=== PATIENT | male | born 1945 | race Caucasian/White ===

== ENCOUNTER 2019-09-12 10:13 | Inpatient (IN) | payer MEDICARE, BC ==
[~2019-09-12] VITALS: Ht 177.8 cm; Wt 101.0 kg
[2019-09-12 10:34] LABS: EOSINOPHILS # (AUTO) 0.3 X10'3 (0-0.9); HEMOGLOBIN 14.2 g/dl (14.0-17.9); LYMPHOCYTES # (AUTO) 25.2 X10'3 (1.1-4.8); MEAN PLATELET VOLUME 8.8 FL (7.4-10.4); MONOCYTES # (AUTO) 0.7 X10'3 (0-0.9); RED CELL DISTRIBUTION WIDTH 14.4 % (11.5-14.5)
[2019-09-12 10:36] LABS: BASOPHILS # (AUTO) 0.3 X10'3 (0-0.2); BASOPHILS % (AUTO) 0.8 % (0-1); HEMATOCRIT 42.4 % (42.0-52.0); LYMPHOCYTES % (AUTO) 76.3 % (21-51); MEAN CORPUSCULAR HEMOGLOBIN 31.6 PG (27.0-31.0); MEAN CORPUSCULAR HGB CONC 33.4 g/dL (33.0-36.5); MEAN CORPUSCULAR VOLUME 94.8 FL (78-98); MONOCYTES % (AUTO) 2.2 % (2-12); NEUTROPHILS # (AUTO) 6.5 X10'3 (1.8-7.7); NEUTROPHILS % (AUTO) 19.7 % (42-75); PLATELET COUNT 130 X10'3 (140-440); RED BLOOD COUNT 4.48 X10'6 (4.70-6.10)
[2019-09-12 10:38] LABS: WHITE BLOOD COUNT 33.1 X10'3 (4.5-11.0)
[2019-09-12 10:54] LABS: PARTIAL THROMBOPLASTIN TIME 26 SECONDS (22-32)
[2019-09-12 10:57] LABS: ALANINE AMINOTRANSFERASE 29 U/L (12-78); ALBUMIN/GLOBULIN RATIO 1.1 (1.1-1.5); ALKALINE PHOSPHATASE 75 IU/L (46-116); ANION GAP 8 (8-16); ASPARTATE AMINO TRANSFERASE 23 U/L (10-37); BILIRUBIN,TOTAL 1.3 MG/DL (0.1-1.0); BLOOD UREA NITROGEN 26 MG/DL (7-18); BUN/CREATININE RATIO 24.5 (5.4-32.0); CHLORIDE 107 MMOL/L (99-107); CREATININE 1.06 MG/DL (0.60-1.10); GLUCOSE 158 MG/DL (70-104); SODIUM 142 MMOL/L (135-145); TOTAL CARBON DIOXIDE 26.6 MMOL/L (24-32); TOTAL PROTEIN 7.5 G/DL (6.4-8.2); eGFR 68 ML/MIN
[2019-09-12 11:01] LABS: ANISOCYTOSIS 1+; PLATELET ESTIMATE DECREASED; TOTAL CELLS COUNTED 100
[2019-09-12] MEDS ORDERED: aspirin 81mg tab.chew PO ONE (11:30)
[2019-09-12] MEDS ORDERED: nitroGLYCERIN 0.4mg/hour patch TD ONE (11:30)
[2019-09-12] MEDS ORDERED: BISO10TA PO (11:44)
[2019-09-12] MEDS ORDERED: ALLO100T PO (11:44)
[2019-09-12] MEDS ORDERED: AMLO2.5T2 PO (11:44)
[2019-09-12] MEDS ORDERED: ROSU10TA2 PO (11:44)
[2019-09-12] MEDS ORDERED: POTA10TA10 PO (11:44)
[2019-09-12] MEDS ORDERED: IRBE150T51 PO (11:44)
[2019-09-12] MEDS ORDERED: FURO80TA87 PO (11:44)
[2019-09-12] MEDS ORDERED: DOXA4TAB3 PO (11:44)
[2019-09-12] MEDS ORDERED: magnesium Cl slow-release 64mg tablet PO PRN (12:10)
[2019-09-12] MEDS ORDERED: LORazepam 1 MG tablet PO PRN (12:10)
[2019-09-12] MEDS ORDERED: magnesium 4gm in 100ml NS 100 ML IV PRN (12:10)
[2019-09-12] MEDS ORDERED: acetaminophen 325mg tablet PO PRN ×2 (12:10)
[2019-09-12] MEDS ORDERED: potassium Cl 20 mEq SR tablet PO PRN ×2 (12:10)
[2019-09-12] MEDS ORDERED: HYDROcodone/acetaminophen 5mg/325mg tablet PO PRN (12:10)
[2019-09-12] MEDS ORDERED: magnesium 2GM in 50ml NS 50 ML IV PRN (12:10)
[2019-09-12] MEDS ORDERED: morphine 2 MG/ML inj. syringe IV PRN (12:10)
[2019-09-12] MEDS ORDERED: LORazepam 2 mg/ml vial IV PRN (12:10)
[2019-09-12] MEDS ORDERED: potassium CL 10mEq/100ml bag 100 ML IV PRN ×2 (12:10)
[2019-09-12] MEDS ORDERED: ondansetron/PF 4mg/2ml inj IV PRN (12:10)
[2019-09-12] MEDS ORDERED: FLUT15.815 NAS (15:49)
--- NOTE | 2019-09-12 17:59 | NUR ---
History of Aortic Valve Replacement 11 years ago at the same time a Aortic Aneurism repair.
[2019-09-12 18:01] VITALS: BP 134/62
--- NOTE | 2019-09-12 18:30 | NUR ---
Patient in room PCU 3011. I have received report from Juliet LYNCH and had the opportunity to ask questions and assume patient care. Patient is up in his chair, he is fully ambulatory and in good spirits. He has no immediate needs. Will continue to monitor
[2019-09-12] MEDS: furosemide 40mg/4ml inj IV SCH (19:26)
[2019-09-12] MEDS: heparin, porcine 5000 units/ml vial SQ SCH (19:27)
[2019-09-12] MEDS: docusate sod 100mg capsule PO SCH (19:27)
[2019-09-12] MEDS ORDERED: temazepam 15mg capsule PO PRN (21:00)
[2019-09-12] MEDS ORDERED: atorvastatin 20mg tablet PO SCH (21:00)
[2019-09-12] MEDS ORDERED: doxazosin mesylate 2mg tablet PO SCH (21:00)
[2019-09-12] MEDS ORDERED: allopurinol 300 MG tablet PO SCH (21:00)
[2019-09-12 22:00] VITALS: BP 121/60
[2019-09-13 02:00] VITALS: BP 122/57
[2019-09-13 05:41] LABS: BASOPHILS # (AUTO) 0.1 X10'3 (0-0.2); BASOPHILS % (AUTO) 0.4 % (0-1); EOSINOPHILS # (AUTO) 0.4 X10'3 (0-0.9); HEMOGLOBIN 13.2 g/dl (14.0-17.9)
[2019-09-13 05:49] LABS: EOSINOPHILS % (AUTO) 1.2 % (0-6); HEMATOCRIT 39.2 % (42.0-52.0); LYMPHOCYTES # (AUTO) 27.6 X10'3 (1.1-4.8); LYMPHOCYTES % (AUTO) 78.2 % (21-51); MEAN CORPUSCULAR HGB CONC 33.6 g/dL (33.0-36.5); MEAN CORPUSCULAR VOLUME 95.3 FL (78-98); MEAN PLATELET VOLUME 9.1 FL (7.4-10.4); MONOCYTES # (AUTO) 0.9 X10'3 (0-0.9); MONOCYTES % (AUTO) 2.6 % (2-12); NEUTROPHILS # (AUTO) 6.2 X10'3 (1.8-7.7); NEUTROPHILS % (AUTO) 17.6 % (42-75); PLATELET COUNT 126 X10'3 (140-440); RED BLOOD COUNT 4.11 X10'6 (4.70-6.10); RED CELL DISTRIBUTION WIDTH 14.8 % (11.5-14.5)
[2019-09-13 05:55] LABS: WHITE BLOOD COUNT 35.2 X10'3 (4.5-11.0)
[2019-09-13 06:00] VITALS: BP 127/57
[2019-09-13 06:03] LABS: ALANINE AMINOTRANSFERASE 26 U/L (12-78); ALBUMIN 3.7 G/DL (3.4-5.0); ALBUMIN/GLOBULIN RATIO 1.2 (1.1-1.5); ALKALINE PHOSPHATASE 68 IU/L (46-116); ANION GAP 8 (8-16); ASPARTATE AMINO TRANSFERASE 21 U/L (10-37); BILIRUBIN,TOTAL 1.2 MG/DL (0.1-1.0); BLOOD UREA NITROGEN 26 MG/DL (7-18); BUN/CREATININE RATIO 23.9 (5.4-32.0); CALCIUM 8.7 MG/DL (8.5-10.1); CHLORIDE 108 MMOL/L (99-107); CHOL/HDL RATIO 3.5 (0.00-4.99); CHOLESTEROL 124 MG/DL (0-200); CREATININE 1.09 MG/DL (0.60-1.10); GLUCOSE 101 MG/DL (70-104); HDL CHOLESTEROL 35 MG/DL (35-60); LDL CHOLESTEROL 71 MG/DL (50-100); MAGNESIUM 1.9 MG/DL (1.5-2.4); POTASSIUM 3.9 MMOL/L (3.5-5.1); SODIUM 145 MMOL/L (135-145); TOTAL PROTEIN 6.7 G/DL (6.4-8.2); TRIGLYCERIDES 119 MG/DL (20-135); eGFR 66 ML/MIN
--- NOTE | 2019-09-13 06:21 | NUR ---
Patient in room PCU 3011. I have received report from Zara LYNCH and had the opportunity to ask questions and assume patient care.
--- NOTE | 2019-09-13 06:39 | NUR ---
Problems reprioritized. Patient report given, questions answered & plan of care reviewed with Julieta LYNCH.
[2019-09-13 07:06] LABS: PLATELET ESTIMATE DECREASED; TOTAL CELLS COUNTED 100
[2019-09-13 07:07] LABS: ANISOCYTOSIS 1+
[2019-09-13 07:27] VITALS: BP_SYST 127
[2019-09-13] MEDS: furosemide 40mg/4ml inj IV SCH (07:27)
[2019-09-13] MEDS: heparin, porcine 5000 units/ml vial SQ SCH (07:27)
[2019-09-13] MEDS ORDERED: losartan 50mg tablet PO SCH (08:00)
[2019-09-13] MEDS ORDERED: atenolol 50mg tablet PO SCH (08:00)
[2019-09-13] MEDS ORDERED: K and/or MAG REPLACEMENT MC SCH (08:00)
[2019-09-13] MEDS: docusate sod 100mg capsule PO SCH (08:20)
[2019-09-13] MEDS ORDERED: FURO-150 PO (10:29)
--- NOTE | 2019-09-13 11:32 | NUR ---
Per MD order, Dr. Gan, patient is stable for discharge. Discharge packet printed and reviewed with patient and spouse. Unable to make CHF follow up appointment for patient since office is closed on Saturday. Instructed patient to call Dr. Tolbert's office tomorrow morning to make follow up appointment. Patient and spouse understand instructions. All questions answered. Tele monitor removed, IV removed with cannula intact. All belongings sent with patient. Patient escorted to private vehicle via wheelchair, home with spouse.
--- NOTE | 2019-09-13 12:18 | NUR ---
New hire documentation: I have reviewed and agree with all interventions, assessments performed and documented by Tania LYNCH .
[2019-09-14] MEDS ORDERED: FURO20TA4 PO (17:08)
[2019-09-14] MEDS ORDERED: DOXY100C43 PO (17:16)
[2019-09-14] MEDS ORDERED: PRED20TA PO (17:16)
[2019-09-14] MEDS ORDERED: ALBU18HF2 INH (17:16)
== END 2019-09-13 11:32 | disposition home or self-care (01) | DRG 280 ==
LOC: ER 10:14 → ED HOLD 12:26 → EDBEDREQ 12:31 → PCU 3S 13:15
PROVIDERS: ADMIT Internal Medicine; ATTEND Family Medicine
DX: I21.A1 Myocardial infarction type 2 (principal); I50.43 Acute on chronic combined systolic (congestive) and diastolic (congestive) heart failure; C91.10 Chronic lymphocytic leukemia of B-cell type not having achieved remission; I24.9 Acute ischemic heart disease, unspecified; R09.02 Hypoxemia; D69.59 Other secondary thrombocytopenia; H54.62 Unqualified visual loss, left eye, normal vision right eye; I25.10 Atherosclerotic heart disease of native coronary artery without angina pectoris; Z79.899 Other long term (current) drug therapy; Z86.79 Personal history of other diseases of the circulatory system; Z95.2 Presence of prosthetic heart valve
CPT/HCPCS: 36415; 71045; 80053; 80061; 83605; 83735; 83880; 84484; 85025; 85610; 85730; 87040; 87081; 93005; 93306; 99285; G0378; J1644; J1940

== ENCOUNTER 2019-09-14 15:05 | Emergency (ER) | payer BC, MEDICARE ==
[~2019-09-14] VITALS: Ht 177.8 cm; Wt 97.0 kg
[~2019-09-14 15:05] MED LIST: ALLO100T PO; AMLO2.5T2 PO; BISO10TA PO; DOXA4TAB3 PO; FLUT15.815 NAS; FURO-150 PO; IRBE150T51 PO; POTA10TA10 PO; ROSU10TA2 PO
[2019-09-14 16:06] LABS: HEMOGLOBIN 13.4 g/dl (14.0-17.9); MEAN CORPUSCULAR HEMOGLOBIN 31.6 PG (27.0-31.0); MONOCYTES # (AUTO) 0.9 X10'3 (0-0.9); RED BLOOD COUNT 4.24 X10'6 (4.70-6.10)
[2019-09-14 16:07] LABS: BASOPHILS # (AUTO) 0.2 X10'3 (0-0.2); BASOPHILS % (AUTO) 0.5 % (0-1); EOSINOPHILS # (AUTO) 0.4 X10'3 (0-0.9); EOSINOPHILS % (AUTO) 1.1 % (0-6); HEMATOCRIT 40.2 % (42.0-52.0); LYMPHOCYTES % (AUTO) 75.5 % (21-51); MEAN CORPUSCULAR HGB CONC 33.4 g/dL (33.0-36.5); MEAN CORPUSCULAR VOLUME 94.7 FL (78-98); MONOCYTES % (AUTO) 2.8 % (2-12); NEUTROPHILS # (AUTO) 6.7 X10'3 (1.8-7.7); NEUTROPHILS % (AUTO) 20.1 % (42-75); PLATELET COUNT 137 X10'3 (140-440); RED CELL DISTRIBUTION WIDTH 14.2 % (11.5-14.5)
[2019-09-14 16:11] LABS: WHITE BLOOD COUNT 33.2 X10'3 (4.5-11.0)
[2019-09-14 16:19] LABS: PARTIAL THROMBOPLASTIN TIME 27 SECONDS (22-32)
[2019-09-14 16:21] LABS: ALANINE AMINOTRANSFERASE 23 U/L (12-78); ALBUMIN 3.9 G/DL (3.4-5.0); ALBUMIN/GLOBULIN RATIO 1.2 (1.1-1.5); ALKALINE PHOSPHATASE 75 IU/L (46-116); ANION GAP 7 (8-16); ASPARTATE AMINO TRANSFERASE 20 U/L (10-37); BILIRUBIN,TOTAL 1.6 MG/DL (0.1-1.0); BLOOD UREA NITROGEN 27 MG/DL (7-18); CALCIUM 9.3 MG/DL (8.5-10.1); CHLORIDE 106 MMOL/L (99-107); CREATININE 1.08 MG/DL (0.60-1.10); GLUCOSE 97 MG/DL (70-104); SODIUM 141 MMOL/L (135-145); TOTAL CARBON DIOXIDE 28.4 MMOL/L (24-32); TOTAL PROTEIN 7.2 G/DL (6.4-8.2); eGFR 67 ML/MIN
[2019-09-14 16:46] LABS: TOTAL CELLS COUNTED 200
[2019-09-14 16:47] LABS: PLATELET ESTIMATE DECREASED
[2019-09-14 16:49] LABS: SMUDGE CELLS 1+
[2019-09-14] MEDS ORDERED: FURO20TA4 PO (17:08)
[2019-09-14] MEDS ORDERED: PRED20TA PO (17:16)
[2019-09-14] MEDS ORDERED: DOXY100C43 PO (17:16)
[2019-09-14] MEDS ORDERED: ALBU18HF2 INH (17:16)
[2019-09-14 18:14] VITALS: BP 132/55
== END 2019-09-14 18:22 | disposition home or self-care (01) ==
LOC: ER 15:05
DX: C91.10 Chronic lymphocytic leukemia of B-cell type not having achieved remission (principal); I50.9 Heart failure, unspecified; Z98.890 Other specified postprocedural states; Z72.89 Other problems related to lifestyle; Z79.899 Other long term (current) drug therapy
CPT/HCPCS: 36415; 71045; 80053; 83880; 84484; 85025; 85610; 85730; 93005; 99284

== ENCOUNTER 2019-09-20 05:10 | Inpatient (IN) | payer MEDICARE, BC ==
[2019-09-19] MEDS: midazolam 100mg in NS 100ml 100 ML IV SCH (06:38)
[2019-09-20] VITALS (13 sets, daily range): BP systolic 79–123; BP diastolic 37–48
[~2019-09-20] VITALS: Ht 177.8 cm; Wt 111.3 kg
[~2019-09-20 05:10] MED LIST changes: +0.9 % SODIUM CHLORIDE 10 ML VIAL ONE; +ALBU18HF2 INH; +DOXY100C43 PO; -FURO-150 PO; +FURO20TA4 PO; +PRED20TA PO; +etomidate 2mg/ml inj. ONE; +sodium bicarbonate (8.4%) inj. 1 MEQ/ML ML ONE
[2019-09-20 06:00] LABS: EOSINOPHILS % (AUTO) 0.1 % (0-6); HEMOGLOBIN 13.1 g/dl (14.0-17.9); MEAN CORPUSCULAR HGB CONC 32.4 g/dL (33.0-36.5); PLATELET COUNT 174 X10'3 (140-440)
[2019-09-20 06:02] LABS: BASOPHILS # (AUTO) 0.2 X10'3 (0-0.2); BASOPHILS % (AUTO) 0.3 % (0-1); HEMATOCRIT 40.6 % (42.0-52.0); LYMPHOCYTES # (AUTO) 42.8 X10'3 (1.1-4.8); MEAN CORPUSCULAR HEMOGLOBIN 31.4 PG (27.0-31.0); MEAN PLATELET VOLUME 9.8 FL (7.4-10.4); MONOCYTES # (AUTO) 1.1 X10'3 (0-0.9); MONOCYTES % (AUTO) 1.9 % (2-12); NEUTROPHILS # (AUTO) 10.8 X10'3 (1.8-7.7); NEUTROPHILS % (AUTO) 19.7 % (42-75); RED BLOOD COUNT 4.18 X10'6 (4.70-6.10); RED CELL DISTRIBUTION WIDTH 14.5 % (11.5-14.5)
[2019-09-20 06:09] LABS: WHITE BLOOD COUNT 54.8 X10'3 (4.5-11.0)
[2019-09-20] MEDS ORDERED: nitroGLYCERIN-Tridil 50MG/D5W 250 ML IV SCH (06:10)
[2019-09-20] MEDS ORDERED: furosemide 10 MG/1 ML 10ml inj IV ONE (06:10)
[2019-09-20 06:18] LABS: PARTIAL THROMBOPLASTIN TIME 22 SECONDS (22-32)
--- NOTE | 2019-09-20 06:20 | NUR ---
Patient oxygen saturation decreased to 80% on a nonrebreather, Heart rate 126 beats/min Vtach, 132/63 mmHg, 37 breaths/min. Paged respiratory for intubation and temperarily held nitro drip due to patients declining status.
[2019-09-20 06:25] LABS: ALANINE AMINOTRANSFERASE 61 U/L (12-78); ALBUMIN 3.7 G/DL (3.4-5.0); ALKALINE PHOSPHATASE 68 IU/L (46-116); ANION GAP 12 (8-16); ASPARTATE AMINO TRANSFERASE 33 U/L (10-37); BILIRUBIN,TOTAL 1.4 MG/DL (0.1-1.0); BLOOD UREA NITROGEN 49 MG/DL (7-18); BUN/CREATININE RATIO 34.3 (5.4-32.0); CHLORIDE 108 MMOL/L (99-107); CREATININE 1.43 MG/DL (0.60-1.10); GLUCOSE 143 MG/DL (70-104); POTASSIUM 3.5 MMOL/L (3.5-5.1); SODIUM 145 MMOL/L (135-145); TOTAL CARBON DIOXIDE 24.6 MMOL/L (24-32); TOTAL PROTEIN 7.4 G/DL (6.4-8.2); eGFR 48 ML/MIN
--- NOTE | 2019-09-20 06:30 | NUR ---
Verbal order obtained for non behavioral restraints.
--- NOTE | 2019-09-20 06:30 | NUR ---
Successful intubation at 0630, chest xray paged for confirmation of placement. RSI intervention completed in interventions.
--- NOTE | 2019-09-20 06:34 | NUR ---
0620 called for crash cart + resp for intubation. patient respiratory decompensating. 0629 janette 70mg, atomidate, bag mask 15 Liters 0630 intubated, 24 teeth- 126hr, 90% bilateral breath sounds 22 132/81, 24 @teeth, color change 0632 112, 82%, 29 rr, 127/70 20g 0635 110hr, 88% o2 15liters bag valve 140/76
[2019-09-20] MEDS ORDERED: heparin 25,000 UNIT/250ml bag 250 ML IV SCH (06:36)
[2019-09-20] MEDS ORDERED: heparin 10,000 units/1 ML INJ IV ONE ×2 (06:40)
[2019-09-20] MEDS ORDERED: heparin 10,000 units/1 ML INJ IV PRN ×2 (06:40→16:40)
--- NOTE | 2019-09-20 06:40 | NUR ---
Chest x ray confirmed ET tube placement. Nitroglycerin drip continued at 5 mcg/min IV.
--- NOTE | 2019-09-20 06:45 | NUR ---
RT obtained ABG.
[2019-09-20] MEDS: fentaNYL/PF 50MCG/1 ML 2ML syringe IV PRN ×2 (06:49→07:13)
[2019-09-20] MEDS ORDERED: iohexol 350MG/ML 100ml bottle IV ONE (06:50)
[2019-09-20 06:51] LABS: ABG BASE EXCESS -5.6 mmol/L (-2.0-3.0); ABG HCO3 23.7 mmol/L (22.0-26.0); ABG OXYGEN SATURATION 83.2 % (95-98); ABG PCO2 (T) 63.2 mmHg (35.0-45.0); ABG PH (T) 7.191 (7.350-7.450); ABG PO2 (T) 60.1 mmHg (83-108); ALLEN'S TEST Positive; FCOHb 0.9 % (0.5-1.5); FMetHb 0.2 % (0.3-1.12); FO2Hb 82.3 % (94-100); MINUTE VOLUME 10 L/min; PEEP 10 cm H2O; RESPIRATORY RATE 20 b/min; RESPIRATORY RATE (OBSERVED) 20 b/min; TIDAL VOLUME 450 mL
[2019-09-20 07:02] LABS: ANISOCYTOSIS 1+; PLATELET ESTIMATE NORMAL; TOTAL CELLS COUNTED 100
[2019-09-20] MEDS: FENTANYL-0.9 % NACL/PF 100 ML IV PRN ×2 (07:58→22:55)
[2019-09-20] MEDS ORDERED: etomidate 2mg/ml inj. IV ONE (08:20)
--- NOTE | 2019-09-20 08:20 | NUR ---
Central line placement by Dr. Vick. Assisted by KALE Burton and SYED Wong.
[2019-09-20] MEDS ORDERED: CefTRIAXone/D5W-Rocephin 1gm 50 ML IV ONE (08:35)
[2019-09-20] MEDS ORDERED: azithromycin/NS 500mg/250ml 250 ML IV ONE (08:35)
[2019-09-20] MEDS ORDERED: magnesium hydroxide 30ml (MOM) UD suspension PO PRN (08:45)
[2019-09-20] MEDS ORDERED: ondansetron/PF 4mg/2ml inj IV PRN (08:45)
[2019-09-20] MEDS ORDERED: acetaminophen 325mg tablet PO PRN (08:45)
[2019-09-20] MEDS ORDERED: magnesium 4gm in 100ml NS 100 ML IV PRN (08:45)
[2019-09-20] MEDS ORDERED: potassium Cl 20 mEq SR tablet PO PRN ×2 (08:45)
[2019-09-20] MEDS ORDERED: magnesium Cl slow-release 64mg tablet PO PRN (08:45)
[2019-09-20] MEDS ORDERED: magnesium 2GM in 50ml NS 50 ML IV PRN (08:45)
--- NOTE | 2019-09-20 08:55 | NUR ---
networking technician at bedside for study as ordered.
[2019-09-20] MEDS: NORepinephrine 8mg/ 250ml NS 250 ML IV SCH ×2 (08:56→17:26)
[2019-09-20 09:08] LABS: CLARITY,URINE CLOUDY (Clear); COLOR,URINE YELLOW (Yellow); GLUCOSE, URINE NEGATIVE (Neg); KETONES,URINE NEGATIVE (Neg); LEUKOCYTE ESTERASE ,URINE NEGATIVE (Neg); NITRITES, URINE NEGATIVE (Neg); OCCULT BLOOD,URINE LARGE (Neg); PROTEIN,URINE 100 mg/dl (Neg); UROBILINOGEN,URINE 0.2 E.U/dL (0.2-1.0)
[2019-09-20 09:14] LABS: UA COLLECTION TYPE FOLEY CATH
[2019-09-20 09:16] LABS: BACTERIA,URINE FEW /HPF (Neg); MUCUS STRANDS FEW /LPF (Neg); SQUAMOUS EPITHELIAL CELL,UR MODERATE /LPF (FEW)
[2019-09-20 09:17] LABS: COARSE GRANULAR CAST 0-3 /LPF (NEGATIVE)
[2019-09-20 09:26] LABS: ABG BASE EXCESS -3.7 mmol/L (-2.0-3.0); ABG HCO3 22.2 mmol/L (22.0-26.0); ABG OXYGEN SATURATION 94.1 % (95-98); ABG PCO2 (T) 43.6 mmHg (35.0-45.0); ABG PH (T) 7.325 (7.350-7.450); ABG PO2 (T) 77.1 mmHg (83-108); ALLEN'S TEST Positive; FCOHb 0.7 % (0.5-1.5); FMetHb 0.1 % (0.3-1.12); FO2Hb 93.3 % (94-100); MINUTE VOLUME 13 L/min; PEEP 12 cm H2O; RESPIRATORY RATE 25 b/min; RESPIRATORY RATE (OBSERVED) 25 b/min; TIDAL VOLUME 500 mL; TOTAL HEMOGLOBIN 12.7 G/dl (14.0-17.9)
--- NOTE | 2019-09-20 09:26 | NUR ---
SEALANT MIXER PERFORMING ECHO AT THIS TIME
[2019-09-20] MEDS ORDERED: midazolam 100mg in NS 100ml 100 ML IV PRN (09:57)
[2019-09-20] MEDS ORDERED: FENTANYL-0.9 % NACL/PF 100 ML IV PRN (09:57)
[2019-09-20] MEDS ORDERED: normal saline 1000ml 1,000 ML IV ONE (10:30)
[2019-09-20] MEDS ORDERED: ALBU8.5H8 PO (10:54)
[2019-09-20] MEDS ORDERED: DOXY100C43 PO (10:54)
[2019-09-20] MEDS: piperacillin/tazo 3.375gm/50ml 50 ML IV SCH ×2 (11:25→16:27)
[2019-09-20] MEDS: normal saline 1000ml 1,000 ML IV SCH ×2 (11:25→13:14)
--- NOTE | 2019-09-20 14:57 | NUR ---
0930- Received report from Judith 1000 - Patient arrived from ER. on 12peep and 100 FIO2, moving arms to face, unable to follow directions but needing restraints for safety. Dr Forrester here, updated on CVP of 10, 500 ml NS bolus ordered, BP 70's/30's titrating levophed. Arterial line placed in right wrist by Dr Forrester. 1210- Dr Forrester called nrsg, per Dr Oliver "very leaky valve", plan is for KIERSTEN tomorrow and evaluate plan of care. No heparin gtt needed as PE ruled out, ok to start lovenox 40 mg daily.
[2019-09-20] MEDS ORDERED: 0.9 % SODIUM CHLORIDE 10 ML VIAL ONE (15:00)
[2019-09-20] MEDS ORDERED: rocuronium bromide 100mg/10ml (10mg/ml) injection IV ONE (15:00)
[2019-09-20 15:31] LABS: ABG BASE EXCESS -1.9 mmol/L (-2.0-3.0); ABG HCO3 21.3 mmol/L (22.0-26.0); ABG OXYGEN SATURATION 96.6 % (95-98); ABG PCO2 (T) 31.6 mmHg (35.0-45.0); ABG PH (T) 7.447 (7.350-7.450); FMetHb 0.1 % (0.3-1.12); FO2Hb 96.5 % (94-100); MINUTE VOLUME 13 L/min; PEEP 10 cm H2O; RESPIRATORY RATE 25 b/min; RESPIRATORY RATE (OBSERVED) 25 b/min; TIDAL VOLUME 500 mL
[2019-09-20] MEDS: midazolam 100mg in NS 100ml 100 ML IV SCH ×2 (16:21→22:54)
--- NOTE | 2019-09-20 16:42 | NUR ---
1600- Reported troponin of10.[address] Forrester, and ABG results with the recommended RT changes of decrease rate to 22 and decrease FIO2 to 90%. 1630 called nursing, after thinking about it would like cardiac heparin gtt restarted.
[2019-09-20 17:28] LABS: PARTIAL THROMBOPLASTIN TIME 23 SECONDS (22-32)
[2019-09-20] MEDS: heparin 25,000 UNIT/250ml bag 250 ML IV SCH (17:45)
--- NOTE | 2019-09-20 18:30 | NUR ---
Patient in room ICU 2040. I have received report from Patrick LYNCH and had the opportunity to ask questions and assume patient care.
[2019-09-20 19:25] LABS: OXYGEN SATURATION (MIXED VEN) 65.6 % (60-80); PO2 MIXED VENOUS (TEMP COR) 38.1 mmHg (35-46)
[2019-09-20 19:25] LABS: ABG BASE EXCESS -2.5 mmol/L (-2.0-3.0); ABG OXYGEN SATURATION 94.9 % (95-98); ABG PH (T) 7.374 (7.350-7.450); ABG PO2 (T) 81.7 mmHg (83-108); FCOHb 0.3 % (0.5-1.5); FMetHb 0.2 % (0.3-1.12); FO2Hb 94.4 % (94-100); MINUTE VOLUME 12 L/min; PEEP 10 cm H2O; RESPIRATORY RATE 22 b/min; RESPIRATORY RATE (OBSERVED) 22 b/min; TIDAL VOLUME 500 mL; TOTAL HEMOGLOBIN 12.2 G/dl (14.0-17.9)
[2019-09-20] MEDS ORDERED: potassium Cl 20mEq/100mL bag 100 ML IV PRN (20:10)
[2019-09-20] MEDS ORDERED: POTASSIUM BICARB 20meq eff tab 20 MEQ TABLET.EFF PO PRN ×2 (20:11)
[2019-09-20] MEDS ORDERED: POTASSIUM BICARB 20meq eff tab 20 MEQ TABLET.EFF OGT PRN ×2 (20:12)
[2019-09-20] MEDS: lactobacillus rhamnosus 10,000 MMU CELLS/CAPSULE PO SCH (20:43)
[2019-09-21] VITALS (24 sets, daily range): BP systolic 111–128; BP diastolic 35–46
[2019-09-21] MEDS: piperacillin/tazo 3.375gm/50ml 50 ML IV SCH ×3 (00:08→15:58)
[2019-09-21] MEDS: acetaminophen 325mg tablet PO PRN ×2 (00:19→19:34)
[2019-09-21] MEDS: NORepinephrine 8mg/ 250ml NS 250 ML IV SCH (01:47)
[2019-09-21] MEDS: normal saline 1000ml 1,000 ML IV SCH ×2 (01:47→16:24)
--- NOTE | 2019-09-21 03:00 | NUR ---
Pt has increasing temperature. Tylenol given at midnight without effect. Fan now in room and ice packs placed.
[2019-09-21 03:15] LABS: EOSINOPHILS # (AUTO) 0.2 X10'3 (0-0.9); EOSINOPHILS % (AUTO) 0.2 % (0-6); HEMOGLOBIN 11.1 g/dl (14.0-17.9); MONOCYTES # (AUTO) 0.8 X10'3 (0-0.9)
[2019-09-21 03:18] LABS: BASOPHILS # (AUTO) 0.4 X10'3 (0-0.2); BASOPHILS % (AUTO) 0.6 % (0-1); HEMATOCRIT 33.9 % (42.0-52.0); LYMPHOCYTES # (AUTO) 52.9 X10'3 (1.1-4.8); LYMPHOCYTES % (AUTO) 81.7 % (21-51); MEAN CORPUSCULAR HEMOGLOBIN 31.4 PG (27.0-31.0); MEAN CORPUSCULAR HGB CONC 32.9 g/dL (33.0-36.5); MEAN CORPUSCULAR VOLUME 95.6 FL (78-98); MEAN PLATELET VOLUME 9.8 FL (7.4-10.4); MONOCYTES % (AUTO) 1.3 % (2-12); NEUTROPHILS # (AUTO) 10.5 X10'3 (1.8-7.7); NEUTROPHILS % (AUTO) 16.2 % (42-75); PLATELET COUNT 174 X10'3 (140-440); RED BLOOD COUNT 3.55 X10'6 (4.70-6.10); RED CELL DISTRIBUTION WIDTH 14.6 % (11.5-14.5)
[2019-09-21 03:22] LABS: WHITE BLOOD COUNT 64.7 X10'3 (4.5-11.0)
[2019-09-21 03:31] LABS: ALANINE AMINOTRANSFERASE 48 U/L (12-78); ALBUMIN 2.7 G/DL (3.4-5.0); ALBUMIN/GLOBULIN RATIO 0.9 (1.1-1.5); ALKALINE PHOSPHATASE 54 IU/L (46-116); ANION GAP 12 (8-16); ASPARTATE AMINO TRANSFERASE 84 U/L (10-37); BLOOD UREA NITROGEN 50 MG/DL (7-18); BUN/CREATININE RATIO 31.4 (5.4-32.0); CALCIUM 8.3 MG/DL (8.5-10.1); CHLORIDE 113 MMOL/L (99-107); CREATININE 1.59 MG/DL (0.60-1.10); GLUCOSE 127 MG/DL (70-104); SODIUM 147 MMOL/L (135-145); TOTAL CARBON DIOXIDE 22.5 MMOL/L (24-32); TOTAL PROTEIN 5.6 G/DL (6.4-8.2); eGFR 43 ML/MIN
[2019-09-21 03:33] LABS: TROPONIN I 20.97 NG/ML (0.0-0.05)
[2019-09-21 04:00] LABS: ABG BASE EXCESS -5.2 mmol/L (-2.0-3.0); ABG HCO3 18.9 mmol/L (22.0-26.0); ABG OXYGEN SATURATION 92.2 % (95-98); ABG PCO2 (T) 34.3 mmHg (35.0-45.0); ABG PH (T) 7.366 (7.350-7.450); FCOHb 0.3 % (0.5-1.5); FMetHb 0.2 % (0.3-1.12); FO2Hb 91.7 % (94-100); MINUTE VOLUME 12 L/min; PATIENT TEMPERATURE 38.4; PEEP 10 cm H2O; RESPIRATORY RATE 22 b/min; RESPIRATORY RATE (OBSERVED) 22 b/min; TIDAL VOLUME 500 mL; TOTAL HEMOGLOBIN 11.9 G/dl (14.0-17.9)
[2019-09-21 04:17] LABS: ANISOCYTOSIS 1+; PLATELET ESTIMATE NORMAL; TOTAL CELLS COUNTED 100
[2019-09-21 04:19] LABS: SMUDGE CELLS 4+
[2019-09-21 04:21] LABS: LARGE PLATELETS FEW
[2019-09-21 04:24] LABS: SMUDGE CELLS 2+
--- NOTE | 2019-09-21 05:27 | NUR ---
Troponin up to 20.97, heparin running, no ECG changes noted.
--- NOTE | 2019-09-21 05:58 | NUR ---
Pt continues to wake agitated. Opens eyes but does not focus on anything. Not following commands. Thrashes arms and legs, chews on ETT, RR increases to high 30s.
--- NOTE | 2019-09-21 06:13 | NUR ---
Patient in room ICU 2040. I have received report from Tasha and had the opportunity to ask questions and assume patient care.
--- NOTE | 2019-09-21 06:17 | NUR ---
Problems reprioritized. Patient report given, questions answered & plan of care reviewed with Patrick LYNCH.
[2019-09-21] MEDS: pantoprazole 40 MG vial IV SCH (07:02)
[2019-09-21] MEDS: lactobacillus rhamnosus 10,000 MMU CELLS/CAPSULE PO SCH ×2 (07:02→19:31)
[2019-09-21] MEDS: heparin 25,000 UNIT/250ml bag 250 ML IV SCH (07:27)
[2019-09-21] MEDS ORDERED: enoxaparin 40mg/0.4ml syringe SUBCUT SCH (08:00)
[2019-09-21] MEDS ORDERED: normal saline 1000ml 1,000 ML IV ONE (10:30)
--- NOTE | 2019-09-21 10:42 | NUR ---
1000- Rounds completed, Stephania Key to come evaluate patient re: f/u KIERSTEN/ cardiology consult. Per Darwin, Dietary consult and 200cc free water q 4hour, 1 lt NS bolus for CVPKeep NPO until KIERSTEN order clarified, start daily banana bag per patients etoh history, continue cardiac heparin gtt. Inform Dr Granados of Stephania Key visit. 1030- Stephania Key rounds- She will speak with Dr Didi MD has cases after 5pm in hospital, tentative plan is for Dr Tolbert to round on patient before rounds. Family discussing possible transfer to [facility] or [facility] in regards to a TAVR procedure (not ordered just an anticipatory discussion). Per Aixa Key Ok to proceed with tube feed at this time as no set KIERSTEN scheduled.
[2019-09-21] MEDS: midazolam 100mg in NS 100ml 100 ML IV SCH ×2 (11:12→21:24)
--- NOTE | 2019-09-21 11:58 | NUR ---
TF consult: Pt admit with respiratory failure requiring intubation. Sepsis score 2 per physical assessment. Pt with OG tube in place however TF not to start until KIERSTEN is complete per MD at critical care rounds. TF recommendations in place for once okay to start feeding with 200 mL Q4H water flushes per MD. Pt with hx EtOH abuse, to start banana bag per MD at critical care rounds. Will continue to follow closely. Recommendations: 1) Continuous TF via OG tube using Vital High Protein with goal rate of 75 mL/hr to provide: 1800 mL total volume/day, 1800 kcal, 158 g protein, and 1505 mL water 2) Additional 200 mL water flush Q4H 3) Prealbumin q /; daily weights 4) Diet advancement to heart healthy as medically indicated once extubated Addendum: 09/21/19 at [address] Amended: Links added.
[2019-09-21] MEDS: FENTANYL-0.9 % NACL/PF 100 ML IV PRN (12:01)
[2019-09-21] MEDS: mineral oil/petrolatum ophthal oint EACHEYE SCH ×2 (14:32→19:31)
--- NOTE | 2019-09-21 17:22 | NUR ---
1700 Dr Tolbert here, family at bedside, per discussion plan is for angiogram tomorrow sometime after noon, wants to evaluate patients BUN/Creatinine in am to determine contrast usage for angio. Continue heparin as currently ordered, do not need to make NPO at this time, await am lab results and notification from Dr Tolbert.
--- NOTE | 2019-09-21 18:40 | NUR ---
Patient in room ICU 2040. I have received report from Patrick LYNCH and had the opportunity to ask questions and assume patient care. Patient intubated and sedated, currently on A/C PRVC mode on 60% FIO2 and PEEP of 10. Currently calm with eyes closed, on fentanyl and versed for sedation. Vitals WNL. Will continue to monitor patient closely.
--- NOTE | 2019-09-21 19:29 | NUR ---
Dr. Burroughs called to request patient's 's phone number. Number provided for
[2019-09-22] VITALS (23 sets, daily range): BP systolic 10–125; BP diastolic 40–53
[2019-09-22] MEDS: piperacillin/tazo 3.375gm/50ml 50 ML IV SCH ×3 (00:22→17:50)
[2019-09-22] MEDS: FENTANYL-0.9 % NACL/PF 100 ML IV PRN ×3 (00:41→22:56)
[2019-09-22] MEDS: mineral oil/petrolatum ophthal oint EACHEYE SCH ×4 (02:02→20:04)
[2019-09-22] MEDS: heparin 25,000 UNIT/250ml bag 250 ML IV SCH (02:22)
[2019-09-22 03:10] LABS: BASOPHILS # (AUTO) 0.1 X10'3 (0-0.2); EOSINOPHILS # (AUTO) 0.2 X10'3 (0-0.9); EOSINOPHILS % (AUTO) 0.4 % (0-6); LYMPHOCYTES # (AUTO) 37.1 X10'3 (1.1-4.8); LYMPHOCYTES % (AUTO) 74.8 % (21-51); MEAN CORPUSCULAR HGB CONC 32.3 g/dL (33.0-36.5); MONOCYTES # (AUTO) 1.1 X10'3 (0-0.9); RED BLOOD COUNT 3.37 X10'6 (4.70-6.10)
[2019-09-22 03:12] LABS: BASOPHILS % (AUTO) 0.1 % (0-1); HEMATOCRIT 32.8 % (42.0-52.0); HEMOGLOBIN 10.6 g/dl (14.0-17.9); MEAN CORPUSCULAR HEMOGLOBIN 31.4 PG (27.0-31.0); MEAN CORPUSCULAR VOLUME 97.3 FL (78-98); MONOCYTES % (AUTO) 2.2 % (2-12); NEUTROPHILS # (AUTO) 11.2 X10'3 (1.8-7.7); NEUTROPHILS % (AUTO) 22.5 % (42-75); PLATELET COUNT 146 X10'3 (140-440); RED CELL DISTRIBUTION WIDTH 14.5 % (11.5-14.5)
[2019-09-22 03:16] LABS: ABG BASE EXCESS -5.3 mmol/L (-2.0-3.0); ABG HCO3 18.5 mmol/L (22.0-26.0); ABG OXYGEN SATURATION 86.5 % (95-98); ABG PCO2 (T) 32.4 mmHg (35.0-45.0); ABG PH (T) 7.379 (7.350-7.450); ABG PO2 (T) 56.5 mmHg (83-108); FCOHb 0.3 % (0.5-1.5); FMetHb 0.3 % (0.3-1.12); MINUTE VOLUME 14 L/min; PATIENT TEMPERATURE 38.4; PEEP 10 cm H2O; RESPIRATORY RATE 22 b/min; RESPIRATORY RATE (OBSERVED) 25 b/min; TIDAL VOLUME 500 mL; TOTAL HEMOGLOBIN 11.8 G/dl (14.0-17.9)
[2019-09-22 03:20] LABS: WHITE BLOOD COUNT 49.6 X10'3 (4.5-11.0)
[2019-09-22 03:21] LABS: ALANINE AMINOTRANSFERASE 41 U/L (12-78); ALBUMIN 2.5 G/DL (3.4-5.0); ALBUMIN/GLOBULIN RATIO 0.8 (1.1-1.5); ALKALINE PHOSPHATASE 59 IU/L (46-116); ANION GAP 11 (8-16); ASPARTATE AMINO TRANSFERASE 53 U/L (10-37); BILIRUBIN,TOTAL 1.3 MG/DL (0.1-1.0); BLOOD UREA NITROGEN 38 MG/DL (7-18); BUN/CREATININE RATIO 30.9 (5.4-32.0); CALCIUM 8.1 MG/DL (8.5-10.1); CHLORIDE 114 MMOL/L (99-107); CREATININE 1.23 MG/DL (0.60-1.10); GLUCOSE 153 MG/DL (70-104); MAGNESIUM 2.1 MG/DL (1.5-2.4); POTASSIUM 3.5 MMOL/L (3.5-5.1); SODIUM 146 MMOL/L (135-145); TOTAL CARBON DIOXIDE 21.2 MMOL/L (24-32); TOTAL PROTEIN 5.7 G/DL (6.4-8.2); eGFR 58 ML/MIN
[2019-09-22] MEDS: acetaminophen 325mg tablet PO PRN ×2 (04:13→20:04)
[2019-09-22 04:27] LABS: ANISOCYTOSIS 1+; PLATELET ESTIMATE NORMAL; SMUDGE CELLS 4+; TOTAL CELLS COUNTED 100
[2019-09-22 04:33] LABS: LARGE PLATELETS FEW
[2019-09-22 04:34] LABS: POLYCHROMASIA FEW
--- NOTE | 2019-09-22 06:32 | NUR ---
Problems reprioritized. Patient report given, questions answered & plan of care reviewed with Etta LYNCH.
--- NOTE | 2019-09-22 06:47 | NUR ---
Patient in room ICU 2040. I have received report from Jason LYNCH and had the opportunity to ask questions and assume patient care. Patient laying in bed with eyes closed, on ventilator 65% fio2 with a peep of 10, Patient has a right IJ with drips infusing, camp draining to gravity. Vital signs stable will continue to monitor
--- NOTE | 2019-09-22 06:50 | NUR ---
Stephania Key came by and informed us that Dr. Tolbert will be taking the patient for a left sided heart cath and KIERSTEN at 5pm, Stephania stated to make the patient NPO at 1200. No other new orders at this time
[2019-09-22] MEDS: MVI, adult No.4 with vit. K 10 ML in dextrose 5% water 500ml 500 ML IV SCH ×2 (07:09)
[2019-09-22] MEDS: pantoprazole 40 MG vial IV SCH (07:09)
[2019-09-22] MEDS: folic acid inj. 2 MG, thiamine inj. 100 MG in normal saline 100ml IV soln 100 ML IV SCH (07:09)
[2019-09-22] MEDS: lactobacillus rhamnosus 10,000 MMU CELLS/CAPSULE PO SCH ×2 (07:10→20:05)
--- NOTE | 2019-09-22 07:30 | NUR ---
Dr. Cutler by to consult on the patient per Dr. Petty's request, he spoke at length with the patients sister. Dr Cutler has requested that we obtain records from [facility] and [facility]. A request has been put in for both facilities.
[2019-09-22] MEDS: midazolam 100mg in NS 100ml 100 ML IV SCH (07:39)
[2019-09-22] MEDS: normal saline 1000ml 1,000 ML IV SCH ×3 (08:42→20:05)
[2019-09-22] MEDS: NORepinephrine 8mg/ 250ml NS 250 ML IV SCH (10:13)
--- NOTE | 2019-09-22 10:46 | NUR ---
Guillermo trigger: Guillermo 12; skin intact. Addendum: 09/22/19 at [address] Amended: Links added.
[2019-09-22] MEDS ORDERED: LIDOcaine 1% (10mg/ml)w/preservative injection 20ml MDV ONE (15:28)
[2019-09-22] MEDS ORDERED: iohexol 350MG/ML 100ml bottle IV ONE (15:28)
--- NOTE | 2019-09-22 15:30 | NUR ---
patient off to dentures lab technician, accompanied by rt to bag, all infusions sent with patient, vital signs stable upon departure to dentures lab technician
--- NOTE | 2019-09-22 17:50 | NUR ---
patient back from cardiac catheterization technician, patient placed back on ventilator, all infusions still running at previous rate, with the exception of the heparin, Righ femoral insertion site clean dry and intact without hematoma. will continue to monitor, vital signs stable
--- NOTE | 2019-09-22 18:25 | NUR ---
Patient in room ICU 2040. I have received report from Etta LYNCH and had the opportunity to ask questions and assume patient care. Patient intubated and sedated, on 4mcg/hr levophed with MAP above 60. Patient occasionally mildly restless. Vitals WNL at this time. Will continue to monitor patient.
--- NOTE | 2019-09-22 19:57 | NUR ---
Attempted to call [facility]'s medical records department to obtain patient records as requested by Dr. Cutler. Reached voicemail stating it was after hours, left message and call-back number.
[2019-09-22 22:19] LABS: MAGNESIUM 2.1 MG/DL (1.5-2.4); POTASSIUM 3.8 MMOL/L (3.5-5.1)
[2019-09-23] VITALS (25 sets, daily range): BP systolic 81–118; BP diastolic 43–62
[2019-09-23] MEDS: piperacillin/tazo 3.375gm/50ml 50 ML IV SCH ×3 (00:37→15:09)
[2019-09-23] MEDS: mineral oil/petrolatum ophthal oint EACHEYE SCH ×4 (01:56→20:21)
[2019-09-23] MEDS: acetaminophen 325mg tablet PO PRN ×2 (01:56→08:01)
[2019-09-23] MEDS: midazolam 100mg in NS 100ml 100 ML IV SCH (02:23)
[2019-09-23 02:26] LABS: EOSINOPHILS # (AUTO) 0.1 X10'3 (0-0.9); EOSINOPHILS % (AUTO) 0.1 % (0-6); HEMOGLOBIN 10.6 g/dl (14.0-17.9); MONOCYTES # (AUTO) 1.1 X10'3 (0-0.9); PLATELET COUNT 158 X10'3 (140-440)
[2019-09-23 02:28] LABS: BASOPHILS # (AUTO) 0.1 X10'3 (0-0.2); BASOPHILS % (AUTO) 0.2 % (0-1); HEMATOCRIT 32.2 % (42.0-52.0); LYMPHOCYTES # (AUTO) 34.8 X10'3 (1.1-4.8); LYMPHOCYTES % (AUTO) 72.2 % (21-51); MEAN CORPUSCULAR HEMOGLOBIN 31.8 PG (27.0-31.0); MEAN CORPUSCULAR VOLUME 96.5 FL (78-98); MEAN PLATELET VOLUME 9.8 FL (7.4-10.4); MONOCYTES % (AUTO) 2.2 % (2-12); NEUTROPHILS # (AUTO) 12.2 X10'3 (1.8-7.7); NEUTROPHILS % (AUTO) 25.3 % (42-75); RED BLOOD COUNT 3.33 X10'6 (4.70-6.10)
[2019-09-23 02:31] LABS: WHITE BLOOD COUNT 48.1 X10'3 (4.5-11.0)
[2019-09-23 02:54] LABS: ALANINE AMINOTRANSFERASE 38 U/L (12-78); ALBUMIN 2.4 G/DL (3.4-5.0); ALBUMIN/GLOBULIN RATIO 0.7 (1.1-1.5); ALKALINE PHOSPHATASE 72 IU/L (46-116); ANION GAP 14 (8-16); ASPARTATE AMINO TRANSFERASE 56 U/L (10-37); BILIRUBIN,TOTAL 1.4 MG/DL (0.1-1.0); BLOOD UREA NITROGEN 45 MG/DL (7-18); BUN/CREATININE RATIO 28.1 (5.4-32.0); CALCIUM 7.9 MG/DL (8.5-10.1); CHLORIDE 113 MMOL/L (99-107); GLUCOSE 172 MG/DL (70-104); MAGNESIUM 2.3 MG/DL (1.5-2.4); POTASSIUM 4.2 MMOL/L (3.5-5.1); SODIUM 144 MMOL/L (135-145); TOTAL CARBON DIOXIDE 16.7 MMOL/L (24-32); eGFR 43 ML/MIN
[2019-09-23 03:06] LABS: PLATELET ESTIMATE NORMAL; TOTAL CELLS COUNTED 100
[2019-09-23 03:07] LABS: POLYCHROMASIA FEW
[2019-09-23 03:08] LABS: LARGE PLATELETS FEW; SMUDGE CELLS 4+
[2019-09-23 03:46] LABS: ABG BASE EXCESS -7.8 mmol/L (-2.0-3.0); ABG HCO3 16.3 mmol/L (22.0-26.0); ABG OXYGEN SATURATION 88.6 % (95-98); ABG PCO2 (T) 31.4 mmHg (35.0-45.0); ABG PH (T) 7.342 (7.350-7.450); ABG PO2 (T) 63.8 mmHg (83-108); FCOHb 0.4 % (0.5-1.5); FMetHb 0.1 % (0.3-1.12); FO2Hb 88.2 % (94-100); MINUTE VOLUME 16 L/min; PATIENT TEMPERATURE 38.8; PEEP 10 cm H2O; RESPIRATORY RATE 22 b/min; RESPIRATORY RATE (OBSERVED) 29 b/min; TIDAL VOLUME 500 mL; TOTAL HEMOGLOBIN 11.6 G/dl (14.0-17.9)
--- NOTE | 2019-09-23 06:31 | NUR ---
Patient in room ICU 2040. I have received report from Jason LYNCH and had the opportunity to ask questions and assume patient care.
--- NOTE | 2019-09-23 06:38 | NUR ---
Problems reprioritized. Patient report given, questions answered & plan of care reviewed with Aurora LYNCH.
[2019-09-23 07:15] LABS: PHOSPHORUS 3.6 MG/DL (2.3-4.5)
[2019-09-23] MEDS: folic acid inj. 2 MG, thiamine inj. 100 MG in normal saline 100ml IV soln 100 ML IV SCH (07:52)
[2019-09-23] MEDS: MVI, adult No.4 with vit. K 10 ML in dextrose 5% water 500ml 500 ML IV SCH ×2 (07:56)
[2019-09-23] MEDS: lactobacillus rhamnosus 10,000 MMU CELLS/CAPSULE PO SCH ×2 (08:00→20:21)
[2019-09-23] MEDS: normal saline 1000ml 1,000 ML IV SCH ×2 (08:42→11:56)
[2019-09-23] MEDS: pantoprazole 40 MG vial IV SCH (08:45)
[2019-09-23] MEDS ORDERED: acetaminophen 1,000mg/100ml IV 100 ML IV ONE (11:05)
[2019-09-23] MEDS ORDERED: ipratropium/albuterol 3ml nebule ONE (11:59)
[2019-09-23] MEDS ORDERED: ipratropium/albuterol 3ml nebule NEB PRN (12:05)
[2019-09-23] MEDS: docusate sodium 100mg/10ml UD cup PO SCH ×2 (12:07→20:22)
[2019-09-23 12:45] LABS: ABG BASE EXCESS -11.1 mmol/L (-2.0-3.0); ABG HCO3 15.1 mmol/L (22.0-26.0); ABG OXYGEN SATURATION 92.4 % (95-98); ABG PCO2 (T) 36.4 mmHg (35.0-45.0); ABG PO2 (T) 75.8 mmHg (83-108); ALLEN'S TEST Positive; FCOHb 0.2 % (0.5-1.5); FMetHb 0.1 % (0.3-1.12); FO2Hb 92.1 % (94-100); MINUTE VOLUME 22 L/min; PEEP 10 cm H2O; RESPIRATORY RATE 22 b/min; RESPIRATORY RATE (OBSERVED) 34 b/min; TIDAL VOLUME 500 mL; TOTAL HEMOGLOBIN 11.6 G/dl (14.0-17.9)
[2019-09-23] MEDS ORDERED: glucagon, human recombinant 1mg kit SUBCUT PRN (13:40)
[2019-09-23] MEDS ORDERED: dextrose ORAL solution 15 GM/59 ML bottle PO PRN ×2 (13:40)
[2019-09-23] MEDS ORDERED: insulin regular, human vial - multi-dose SQ SCH (13:40)
[2019-09-23] MEDS ORDERED: dextrose 50%-water 50ml dispensing syringe IV PRN ×2 (13:40)
[2019-09-23] MEDS: NORepinephrine 8mg/ 250ml NS 250 ML IV SCH ×3 (15:06→22:21)
[2019-09-23] MEDS: vasopressin inj. 20 UNIT in normal saline 100ml IV soln 39 ML IV SCH ×2 (15:50→22:58)
[2019-09-23] MEDS ORDERED: sodium bicarbonate (8.4%) inj. 150 MEQ in dextrose 5%-water 1,000 ML IV SCH (16:49)
[2019-09-23 17:30] LABS: ABG BASE EXCESS -11.3 mmol/L (-2.0-3.0); ABG HCO3 15.3 mmol/L (22.0-26.0); ABG OXYGEN SATURATION 94.9 % (95-98); ABG PCO2 (T) 37.7 mmHg (35.0-45.0); ABG PH (T) 7.228 (7.350-7.450); ABG PO2 (T) 84.1 mmHg (83-108); FCOHb 0.3 % (0.5-1.5); FMetHb 0.2 % (0.3-1.12); FO2Hb 94.4 % (94-100); MINUTE VOLUME 13 L/min; PATIENT TEMPERATURE 37.7; PEEP 15 cm H2O; RESPIRATORY RATE 22 b/min; RESPIRATORY RATE (OBSERVED) 25 b/min; TIDAL VOLUME 500 mL; TOTAL HEMOGLOBIN 11.8 G/dl (14.0-17.9)
[2019-09-23 17:37] LABS: BASOPHILS # (AUTO) 0.1 X10'3 (0-0.2); BASOPHILS % (AUTO) 0.1 % (0-1); EOSINOPHILS % (AUTO) 0 % (0-6); HEMATOCRIT 34.8 % (42.0-52.0); HEMOGLOBIN 10.8 g/dl (14.0-17.9); LYMPHOCYTES # (AUTO) 72.2 X10'3 (1.1-4.8); LYMPHOCYTES % (AUTO) 80.5 % (21-51); MEAN CORPUSCULAR HEMOGLOBIN 30.4 PG (27.0-31.0); MEAN CORPUSCULAR HGB CONC 30.9 g/dL (33.0-36.5); MEAN CORPUSCULAR VOLUME 98.3 FL (78-98); MEAN PLATELET VOLUME 9.8 FL (7.4-10.4); MONOCYTES # (AUTO) 1.3 X10'3 (0-0.9); MONOCYTES % (AUTO) 1.5 % (2-12); NEUTROPHILS % (AUTO) 17.9 % (42-75); PLATELET COUNT 206 X10'3 (140-440); RED BLOOD COUNT 3.54 X10'6 (4.70-6.10)
[2019-09-23 17:41] LABS: WHITE BLOOD COUNT 89.7 X10'3 (4.5-11.0)
[2019-09-23 17:51] LABS: ALANINE AMINOTRANSFERASE 133 U/L (12-78); ALBUMIN 2.3 G/DL (3.4-5.0); ALBUMIN/GLOBULIN RATIO 0.6 (1.1-1.5); ALKALINE PHOSPHATASE 84 IU/L (46-116); ANION GAP 14 (8-16); ASPARTATE AMINO TRANSFERASE 146 U/L (10-37); BLOOD UREA NITROGEN 53 MG/DL (7-18); BUN/CREATININE RATIO 23.7 (5.4-32.0); CALCIUM 7.6 MG/DL (8.5-10.1); CHLORIDE 110 MMOL/L (99-107); CREATININE 2.24 MG/DL (0.60-1.10); GLUCOSE 205 MG/DL (70-104); MAGNESIUM 2.2 MG/DL (1.5-2.4); PHOSPHORUS 4.5 MG/DL (2.3-4.5); SODIUM 143 MMOL/L (135-145); TOTAL CARBON DIOXIDE 19.5 MMOL/L (24-32); TOTAL PROTEIN 6.1 G/DL (6.4-8.2); eGFR 29 ML/MIN
[2019-09-23] MEDS: sodium bicarbonate (8.4%) inj. 75 MEQ in dextrose 5%-water 500 ML IV SCH (17:54)
[2019-09-23 18:05] LABS: HEMOGLOBIN A1C 5.5 % (4.5-6.2)
--- NOTE | 2019-09-23 18:16 | NUR ---
Problems reprioritized. Patient report given, questions answered & plan of care reviewed with Rachelle LYNCH.
[2019-09-23 18:22] LABS: PLATELET ESTIMATE NORMAL; SMUDGE CELLS 3+
[2019-09-23 18:28] LABS: LYMPHOCYTES % (MANUAL) 90 % (21-51); NEUTROPHILS % (MANUAL) 11 % (42-75); TOTAL CELLS COUNTED 100
--- NOTE | 2019-09-23 18:30 | NUR ---
Patient in room ICU 2040. I have received report from Aurora LYNCH, and had the opportunity to ask questions and assume patient care.
--- NOTE | 2019-09-23 19:15 | NUR ---
PT is intubated and mechanically vented, tolerating settings well. O2 sat >94%. Sedation turned back on d/t PT moving his head and over breathing vent, set rate 22, observed rate 27. PT is on High dose pressors, Levo is @ 40mcg. Vasopressin is @ 1.2, all vasoactive meds are infusing to RT-IJ CVL. A-Line to RT radial is positional, has been zeroed. OG is to LIS with light green drainage noted. Hernandez in place draining to gravity. Bed is locked and low. Bilat soft wrist restraints in place and secure. Will continue to monitor.
[2019-09-23] MEDS: clindamycin 600mg/D5W 50ml 50 ML IV SCH (19:49)
[2019-09-23] MEDS ORDERED: doxycycline inj 100 MG in normal saline 100ml IV soln 100 ML IV SCH (20:00)
[2019-09-23] MEDS: heparin, porcine 5000 units/ml vial SQ SCH (20:21)
[2019-09-23] MEDS: furosemide 40mg/4ml inj IV SCH (20:22)
[2019-09-23] MEDS: insulin Lispro (HumaLOG) vial - multi-dose SQ SCH (20:47)
[2019-09-23] MEDS ORDERED: insulin glargine (Lantus) pen - multi-dose SQ SCH (21:00)
--- NOTE | 2019-09-23 22:30 | NUR ---
PT continues to rest with no s/s of distress noted at this time. PT remains on 40mcg Levo and Vasopressin is up to 1.8 to maintain MAP >60. Bed is locked and low. Bilat soft wrist restraints in place and secure. Will continue to monitor.
[2019-09-24] VITALS (13 sets, daily range): BP systolic 79–118; BP diastolic 39–55
[2019-09-24] MEDS: sodium bicarbonate (8.4%) inj. 75 MEQ in dextrose 5%-water 500 ML IV SCH ×2 (00:08→05:30)
[2019-09-24] MEDS: piperacillin/tazo 3.375gm/50ml 50 ML IV SCH ×2 (00:09→08:46)
[2019-09-24] MEDS: NORepinephrine 8mg/ 250ml NS 250 ML IV SCH ×3 (00:53→07:56)
[2019-09-24] MEDS: mineral oil/petrolatum ophthal oint EACHEYE SCH ×2 (02:13→08:22)
[2019-09-24] MEDS: furosemide 40mg/4ml inj IV SCH ×2 (02:13→08:28)
[2019-09-24 02:58] LABS: BASOPHILS % (AUTO) 0 % (0-1); EOSINOPHILS % (AUTO) 0 % (0-6); HEMATOCRIT 33.8 % (42.0-52.0); HEMOGLOBIN 10.7 g/dl (14.0-17.9); LYMPHOCYTES # (AUTO) 72.4 X10'3 (1.1-4.8); LYMPHOCYTES % (AUTO) 83.4 % (21-51); MEAN CORPUSCULAR HEMOGLOBIN 30.8 PG (27.0-31.0); MEAN CORPUSCULAR HGB CONC 31.8 g/dL (33.0-36.5); MEAN CORPUSCULAR VOLUME 97.1 FL (78-98); MEAN PLATELET VOLUME 10.1 FL (7.4-10.4); MONOCYTES # (AUTO) 1.9 X10'3 (0-0.9); MONOCYTES % (AUTO) 2.2 % (2-12); NEUTROPHILS # (AUTO) 12.5 X10'3 (1.8-7.7); NEUTROPHILS % (AUTO) 14.4 % (42-75); PLATELET COUNT 202 X10'3 (140-440); RED BLOOD COUNT 3.48 X10'6 (4.70-6.10); RED CELL DISTRIBUTION WIDTH 14.9 % (11.5-14.5)
[2019-09-24 03:01] LABS: WHITE BLOOD COUNT 86.9 X10'3 (4.5-11.0)
[2019-09-24 03:10] LABS: ABG BASE EXCESS -9.6 mmol/L (-2.0-3.0); ABG HCO3 16.2 mmol/L (22.0-26.0); ABG OXYGEN SATURATION 95.8 % (95-98); ABG PCO2 (T) 35.4 mmHg (35.0-45.0); ABG PH (T) 7.279 (7.350-7.450); ABG PO2 (T) 84.9 mmHg (83-108); FCOHb 0.3 % (0.5-1.5); FMetHb 0.1 % (0.3-1.12); FO2Hb 95.4 % (94-100); MINUTE VOLUME 12 L/min; PATIENT TEMPERATURE 37.2; PEEP 15 cm H2O; RESPIRATORY RATE 22 b/min; RESPIRATORY RATE (OBSERVED) 22 b/min; TIDAL VOLUME 500 mL; TOTAL HEMOGLOBIN 11.6 G/dl (14.0-17.9)
[2019-09-24 03:16] LABS: ALANINE AMINOTRANSFERASE 520 U/L (12-78); ALBUMIN 2.1 G/DL (3.4-5.0); ALBUMIN/GLOBULIN RATIO 0.6 (1.1-1.5); ALKALINE PHOSPHATASE 84 IU/L (46-116); ANION GAP 14 (8-16); ASPARTATE AMINO TRANSFERASE 479 U/L (10-37); BLOOD UREA NITROGEN 57 MG/DL (7-18); BUN/CREATININE RATIO 21.3 (5.4-32.0); CALCIUM 7.5 MG/DL (8.5-10.1); CHLORIDE 110 MMOL/L (99-107); CREATININE 2.67 MG/DL (0.60-1.10); GLUCOSE 209 MG/DL (70-104); MAGNESIUM 2.2 MG/DL (1.5-2.4); POTASSIUM 4.3 MMOL/L (3.5-5.1); SODIUM 143 MMOL/L (135-145); TOTAL CARBON DIOXIDE 18.8 MMOL/L (24-32); TOTAL PROTEIN 5.7 G/DL (6.4-8.2); eGFR 24 ML/MIN
--- NOTE | 2019-09-24 03:30 | NUR ---
PT continues to rest with no s/s of distress noted at this time. PT remains on 40mcg Levo and 1.8 of Vasopressin to maintain MAP >60. FiO2 weaned down from 85% to 80% for PaO2 of 84.9. Bed is locked and low. Bilat soft wrist restraints in place and secure. Will continue to monitor.
[2019-09-24 03:32] LABS: TOTAL CELLS COUNTED 100
[2019-09-24 03:33] LABS: PLATELET ESTIMATE NORMAL; SMUDGE CELLS 4+
[2019-09-24] MEDS: insulin Lispro (HumaLOG) vial - multi-dose SQ SCH ×2 (03:48→08:25)
[2019-09-24] MEDS: midazolam 100mg in NS 100ml 100 ML IV SCH (04:31)
--- NOTE | 2019-09-24 06:43 | NUR ---
Problems reprioritized. Patient report given, questions answered & plan of care reviewed with Kali LYNCH.
[2019-09-24] MEDS ORDERED: folic acid 1mg tablet OGT SCH (08:00)
[2019-09-24] MEDS ORDERED: thiamine 100mg tablet OGT SCH (08:00)
[2019-09-24] MEDS: clindamycin 600mg/D5W 50ml 50 ML IV SCH (08:26)
[2019-09-24] MEDS: pantoprazole 40 MG vial IV SCH (08:28)
[2019-09-24] MEDS: docusate sodium 100mg/10ml UD cup PO SCH (08:46)
[2019-09-24] MEDS: lactobacillus rhamnosus 10,000 MMU CELLS/CAPSULE PO SCH (08:50)
[2019-09-24] MEDS: heparin, porcine 5000 units/ml vial SQ SCH (08:52)
[2019-09-24] MEDS ORDERED: epiNEPHrine inj 5 MG in normal saline 250ml IV soln 250 ML IV PRN (09:51)
[2019-09-24] MEDS ORDERED: MULTIVIT-MIN/FERROUS GLUCONATE 9 MG/15 ML LIQUID OGT SCH (10:00)
[2019-09-24 10:23] LABS: ALANINE AMINOTRANSFERASE 574 U/L (12-78); ALBUMIN 2.1 G/DL (3.4-5.0); ALBUMIN/GLOBULIN RATIO 0.6 (1.1-1.5); ALKALINE PHOSPHATASE 103 IU/L (46-116); ANION GAP 13 (8-16); ASPARTATE AMINO TRANSFERASE 525 U/L (10-37); BILIRUBIN,TOTAL 1.1 MG/DL (0.1-1.0); BLOOD UREA NITROGEN 58 MG/DL (7-18); BUN/CREATININE RATIO 18.6 (5.4-32.0); CALCIUM 7.4 MG/DL (8.5-10.1); CHLORIDE 109 MMOL/L (99-107); CREATININE 3.12 MG/DL (0.60-1.10); GLUCOSE 192 MG/DL (70-104); POTASSIUM 4.4 MMOL/L (3.5-5.1); SODIUM 142 MMOL/L (135-145); TOTAL CARBON DIOXIDE 20.5 MMOL/L (24-32); TOTAL PROTEIN 5.7 G/DL (6.4-8.2); eGFR 20 ML/MIN
--- NOTE | 2019-09-24 10:48 | NUR ---
at bedside to place line for CRRT. Updated on all drips and VS. sp2 85 at 100% fio2 and peep 15. levo and vaso max dose with epi started. lactic up to 2.4 from 1.6
[2019-09-24] MEDS ORDERED: acetaminophen 1,000mg/100ml IV 100 ML IV ONE (10:50)
[2019-09-24] MEDS ORDERED: NORepinephrine 8mg/ 250ml NS 250 ML IV SCH (11:04)
[2019-09-24] MEDS ORDERED: sodium phosphate inj. 30 MMOL in normal saline 250ml IV soln 250 ML IV PRN (11:10)
[2019-09-24] MEDS ORDERED: magnesium 4gm in 100ml NS 100 ML IV PRN (11:10)
[2019-09-24] MEDS ORDERED: potassium Cl 20mEq/100mL bag 100 ML IV PRN (11:10)
[2019-09-24] MEDS ORDERED: calcium chloride inj. 1,000 MG in normal saline 100ml IV soln 100 ML IV PRN (11:10)
[2019-09-24 11:41] LABS: ABG BASE EXCESS -12.2 mmol/L (-2.0-3.0); ABG HCO3 15.9 mmol/L (22.0-26.0); ABG OXYGEN SATURATION 83.7 % (95-98); ABG PCO2 (T) 48.8 mmHg (35.0-45.0); ABG PH (T) 7.143 (7.350-7.450); ABG PO2 (T) 64.5 mmHg (83-108); FCOHb 0.3 % (0.5-1.5); FMetHb 0.1 % (0.3-1.12); FO2Hb 83.4 % (94-100); MINUTE VOLUME 12 L/min; PATIENT TEMPERATURE 38.9; PEEP 15 cm H2O; RESPIRATORY RATE 22 b/min; TIDAL VOLUME 500 mL; TOTAL HEMOGLOBIN 11.7 G/dl (14.0-17.9)
[2019-09-24 11:56] LABS: ABG BASE EXCESS -7.4 mmol/L (-2.0-3.0); ABG HCO3 23.3 mmol/L (22.0-26.0); ABG OXYGEN SATURATION 77.3 % (95-98); ABG PCO2 (T) 76.9 mmHg (35.0-45.0); ABG PH (T) 7.099 (7.350-7.450); ABG PO2 (T) 54.4 mmHg (83-108); FCOHb 0.3 % (0.5-1.5); FLOW 15 L/min; FO2Hb 77.1 % (94-100); TOTAL HEMOGLOBIN 11.8 G/dl (14.0-17.9)
[2019-09-24] MEDS ORDERED: atropine 0.1mg/ml 10ml syringe ONE (12:00)
[2019-09-24] MEDS ORDERED: calcium chloride 100 MG/1 ML inj IV ONE (12:00)
[2019-09-24] MEDS ORDERED: sodium bicarbonate (8.4%) inj. 1 MEQ/ML ML ONE (12:00)
[2019-09-24] MEDS ORDERED: Duosol 4K/3 Ca (w/calcium) 5,000 ML HE SCH (12:00)
[2019-09-24] MEDS ORDERED: epiNEPHrine 0.1mg/ml 10ml syringe ONE (12:00)
[2019-09-24 12:10] LABS: MAGNESIUM 2.2 MG/DL (1.5-2.4); PHOSPHORUS 6.7 MG/DL (2.3-4.5)
[2019-09-24 12:16] LABS: ABG BASE EXCESS -14.3 mmol/L (-2.0-3.0); ABG HCO3 18.4 mmol/L (22.0-26.0); ABG PCO2 (T) 83.7 mmHg (35.0-45.0); ABG PH (T) 6.961 (7.350-7.450); ABG PO2 (T) 44.6 mmHg (83-108); FCOHb 0.3 % (0.5-1.5); FLOW 15 L/min; FO2Hb 61.8 % (94-100); TOTAL HEMOGLOBIN 11.7 G/dl (14.0-17.9)
--- NOTE | 2019-09-24 13:05 | NUR ---
Dr Granados and Dr Cutler and Kadeem Gamino at bedside frequently throughout the morning being updated on patients condition, labs, vitals, medications, and changes. Patients needs for BP support were increasing and he was maxed out on pressors; epinephrine was added after reviewing information from the [facility]. Line placed for CVVH and new art line placed. Patient was more tachycardic, hypoxic, hypotensive, and febrile then at the start of my shift. After lines were placed, an ABG was drawn, and shortly after the patient went asystolic and code was called, starting compressions immediately. Family is requesting and autopsy
--- NOTE | 2019-09-24 13:30 | NUR ---
Spoke with manager fashion cdl company driver. He states that this is not a jailer chief case and that the family will have to pursue that privately Addendum: 09/24/19 at 1353 by Kali Vaughn RN notified and requesting to release to yrn albarran. I called and left a voicemail. Donor network also notified
[2019-09-24] MEDS ORDERED: atorvastatin 20mg tablet PO SCH (21:00)
[2019-09-25] MEDS ORDERED: MESSAGE TO NURSING PO ONE ×2 (01:30→05:30)
[2019-09-25] MEDS ORDERED: cefazolin/dext.iso 2gm/50ml 50 ML IV ONE (05:30)
[2019-09-25] MEDS ORDERED: vancomycin/NS 1 GM ADD-VANTAGE 250 ML IV ONE (05:30)
[2019-09-25] MEDS ORDERED: MALTODEXTRIN/FRUCTOSE 0.68 KCAL/ML LIQUID 296ML BOTTLE PO ONE (05:30)
[2019-09-25] MEDS ORDERED: gabapentin 400mg capsule PO ONE (05:30)
[2019-09-25] MEDS ORDERED: dextrose 50%-water 50ml dispensing syringe IV PRN (05:30)
[2019-09-25] MEDS ORDERED: insulin regular, human 100 UNIT in normal saline 100ml IV soln 100 ML IV SCH ×2 (05:30)
[2019-09-25] MEDS ORDERED: insulin glargine (Lantus) pen - multi-dose SQ PRN (05:30)
[2019-09-25] MEDS ORDERED: mupirocin 2% nasal ointment 1gm UD NS SCH (08:00)
== END 2019-09-24 12:38 | disposition expired | DRG 870 ==
LOC: ER 05:11 → ED HOLD 08:53 → ICU 2S 09:08
PROVIDERS: ADMIT Internal Medicine Critical Care Medicine; ATTEND Internal Medicine Critical Care Medicine
PROC: B32T1ZZ Computerized Tomography (CT Scan) of Left Pulmonary Artery using Low Osmolar Contrast (ICD-10-PCS; 2019-09-20)
PROC: B3201ZZ Computerized Tomography (CT Scan) of Thoracic Aorta using Low Osmolar Contrast (ICD-10-PCS; 2019-09-20)
PROC: B32S1ZZ Computerized Tomography (CT Scan) of Right Pulmonary Artery using Low Osmolar Contrast (ICD-10-PCS; 2019-09-20)
PROC: 5A1955Z Respiratory Ventilation, Greater than 96 Consecutive Hours (ICD-10-PCS; 2019-09-20)
PROC: 0BH17EZ Insertion of Endotracheal Airway into Trachea, Via Natural or Artificial Opening (ICD-10-PCS; 2019-09-20)
PROC: 4A023N7 Measurement of Cardiac Sampling and Pressure, Left Heart, Percutaneous Approach (ICD-10-PCS; 2019-09-22)
PROC: B211YZZ Fluoroscopy of Multiple Coronary Arteries using Other Contrast (ICD-10-PCS; 2019-09-22)
PROC: B24BZZ4 Ultrasonography of Heart with Aorta, Transesophageal (ICD-10-PCS; 2019-09-22)
PROC: 06HM33Z Insertion of Infusion Device into Right Femoral Vein, Percutaneous Approach (ICD-10-PCS; principal; 2019-09-24)
PROC: B54BZZA Ultrasonography of Right Lower Extremity Veins, Guidance (ICD-10-PCS; 2019-09-24)
PROC: 04HY32Z Insertion of Monitoring Device into Lower Artery, Percutaneous Approach (ICD-10-PCS; 2019-09-24)
PROC: 5A12012 Performance of Cardiac Output, Single, Manual (ICD-10-PCS; 2019-09-24)
DX: A41.9 Sepsis, unspecified organism (principal); I21.4 Non-ST elevation (NSTEMI) myocardial infarction; J96.01 Acute respiratory failure with hypoxia; I50.31 Acute diastolic (congestive) heart failure; C91.10 Chronic lymphocytic leukemia of B-cell type not having achieved remission; N17.9 Acute kidney failure, unspecified; I11.0 Hypertensive heart disease with heart failure; I35.0 Nonrheumatic aortic (valve) stenosis; I35.8 Other nonrheumatic aortic valve disorders; K04.7 Periapical abscess without sinus; I44.7 Left bundle-branch block, unspecified; E78.5 Hyperlipidemia, unspecified; I71.4 Abdominal aortic aneurysm, without rupture; I46.9 Cardiac arrest, cause unspecified; I35.1 Nonrheumatic aortic (valve) insufficiency; H54.62 Unqualified visual loss, left eye, normal vision right eye; I25.10 Atherosclerotic heart disease of native coronary artery without angina pectoris; I35.2 Nonrheumatic aortic (valve) stenosis with insufficiency; Z88.1 Allergy status to other antibiotic agents
CPT/HCPCS: 31500; 36415; 36556; 36600; 70100; 70450; 71045; 71275; 74176; 80053; 81001; 82803; 82810; 82948; 83036; 83605; 83735; 83880; 84100; 84132; 84134; 84145; 84439; 84443; 84484; 85018; 85025; 85610; 85730; 86622; 87040; 87070; 87081; 87088; 90935; 92950; 93005; 93308; 93312; 93454; 93970; 94002; 94003; 94640; 94760; 96365; 96367; 96368; 99285; A6258; C1769; C1894; C9113; E1594; G0378; J0131; J0171; J0456; J0461; J0696; J1644; J1815; J1940; J2001; J2250; J2543; J3010; J3411; J3490; J7050; J7060; Q9967